=== PATIENT | female | born 1985 | race Caucasian/White ===

== ENCOUNTER 2020-01-19 12:01 | Emergency (ER) | payer BC, SELFPAY ==
[2020-01-19 12:28] LABS: Bilirubin Negative (Negative); Blood, Urine Moderate (Negative); Glucose, Urine (Dipstick) Negative (Negative); Ketone, Urine Negative (Negative); Leukocyte Moderate (Negative); Nitrite Negative (Negative); Protein, Urine (Dipstick) Negative (Neg-Trace); Specific Gravity, Urine 1.025 (1.005-1.030); Urobilinogen 0.2 mg/dL (Less than 2); pH, Urine 5.5 (5.0-9.0)
[2020-01-19 12:29] LABS: Clarity Cloudy (Clear)
[2020-01-19 12:32] LABS: Bacteria/HPF Rare-Few HPF (None Seen); Mucous/LPF 1+ LPF (<2+); WBC/HPF Greater Than 50 HPF (0-3)
[2020-01-19] MEDS ORDERED: Morphine 4 MG/ML VIAL ONE (12:32)
[2020-01-19 12:33] LABS: Pregnancy Test - Urine (BHCG) Negative (Negative); Pregu Control Background? CLEAR/WHITE (CLR/WHITE); Pregu Control Bar Appear? YES (CONTROL BAR); Specific Gravity 1.025 (1.002-1.036)
[2020-01-19 12:57] LABS: #Basophils 0.1 thou/uL (0.0-0.2); #Eosinphils 0.2 thou/uL (0.0-0.7); #Lymphocytes 2.4 thou/uL (1.20-3.40); #Monocytes 0.7 thou/uL (0.11-0.59); #Neutrophils 2.8 thou/uL (1.40-6.50); %Basophils 1.8 % (0.0-1.0); %Eosinophils 2.9 % (0.0-10.0); %Lymphocytes 39.6 % (21.0-51.0); %Monocytes 10.7 % (0.0-10.0); Hemoglobin 12.5 g/dL (12.0-16.0); Mean Corpuscular HGB CONC 32.6 g/dL (32.0-36.0); Mean Corpuscular Hemoglobin 29.1 pg (27.0-31.0); Mean Corpuscular Volume 89.3 fL (78.0-98.0); Mean Platelet Volume 7.3 fL (7.4-10.4); Platelet Count 271 thou/uL (130-400); RBC Distribution Width 11.1 % (11.5-14.5); White Blood Cell (WBC) Count 6.1 thou/uL (4.8-10.8)
--- NOTE | 2020-01-19 13:02 | CT ---
CT abdomen and pelvis noncontrast HISTORY: Right flank pain. Hematuria. FINDINGS: Each renal collecting system, ureter, and urinary bladder are decompressed without stone ap parent. Ligation clips present at the gallbladder fossa, consistent with prior cholecystectomy. Physiologic amount of free fluid is present within the cul-de-sac. Small pockets of gas within the le ft posterolateral subcutaneous tissues likely related to recent injection. Lack of contrast limits evaluation of the soft tissues. No evidence of bowel obstruction or inflammat ion. Phleboliths are evident within the pelvis. IMPRESSION : No evidence of urinary tract obstruction or calcification. No significant abnormalities are demonstra loraine.
[2020-01-19 13:10] LABS: Anion Gap 14 mmol/L (10-20); BUN (Urea Nitrogen) 8 mg/dL (7.0-18.7); Calc. Creatinine Clearance 0 mL/min (70-130); Calcium 8.5 mg/dL (7.8-10.44); Carbon Dioxide 24 mmol/L (22-29); Chloride 107 mmol/L (98-107); Estimated GFR-MDRD 75; Glucose 71 mg/dL (70-105); Potassium 4.2 mmol/L (3.5-5.1); Sodium 141 mmol/L (136-145)
[2020-01-19] MEDS ORDERED: cefTRIAXone\\ROCEPHIN 1 GM VIAL ONE (13:21)
[2020-01-19] MEDS ORDERED: Lidocaine 1% 20 ML MDV ONE (13:21)
== END 2020-01-19 13:20 | disposition home or self-care (01) ==
LOC: MADERS 12:01
DX: N30.01 Acute cystitis with hematuria (principal)
CPT/HCPCS: 36415; 74176; 80048; 81003; 81015; 81025; 85025; 96372; J0696; J2270